=== PATIENT | female | born 1985 | race Two or more races ===

== ENCOUNTER 2018-06-27 08:51 | Emergency (ER) | payer MEDICAID ==
[~2018-06-27] VITALS: Ht 165.1 cm; Wt 70.3 kg
[2018-06-27 09:04] VITALS: BP 141/94
== END 2018-06-27 09:31 | disposition home or self-care (01) ==
LOC: ER 08:54
DX: K21.0 Gastro-esophageal reflux disease with esophagitis (principal)
CPT/HCPCS: 99281; A4606; Z7610; Z7502